=== PATIENT | male | born 1965 | race Caucasian/White ===

== ENCOUNTER 2018-06-29 22:58 | Inpatient (IN) | payer OTHER ==
[~2018-06-29] VITALS: Ht 180.3 cm; Wt 145.0 kg
[2018-06-29] MEDS ORDERED: iohexol 350MG/ML 100ml bottle IV ONE (23:20)
[2018-06-29 23:58] LABS: BASOPHILS # (AUTO) 0.1 X10'3 (0-0.2); BASOPHILS % (AUTO) 0.6 % (0-1); EOSINOPHILS # (AUTO) 0.6 X10'3 (0-0.9); EOSINOPHILS % (AUTO) 5.7 % (0-6); HEMATOCRIT 46.3 % (42.0-52.0); HEMOGLOBIN 15.6 g/dl (14.0-17.9); MEAN CORPUSCULAR HEMOGLOBIN 31.1 PG (27.0-31.0); MEAN CORPUSCULAR HGB CONC 33.6 % (33.0-36.5); MEAN CORPUSCULAR VOLUME 92.7 FL (78-98); MEAN PLATELET VOLUME 7.7 FL (7.4-10.4); MONOCYTES # (AUTO) 0.8 X10'3 (0-0.9); MONOCYTES % (AUTO) 7.3 % (2-12); NEUTROPHILS # (AUTO) 6.3 X10'3 (1.8-7.7); NEUTROPHILS % (AUTO) 58.4 % (42-75); PLATELET COUNT 374 X10'3 (140-440); RED CELL DISTRIBUTION WIDTH 13.7 % (11.5-14.5); WHITE BLOOD COUNT 10.7 X10'3 (4.5-11.0)
[2018-06-30] VITALS (7 sets, daily range): BP systolic 121–145; BP diastolic 83–93
[2018-06-30] MEDS ORDERED: acetaminophen 325mg tablet PO PRN ×2 (00:05)
[2018-06-30] MEDS ORDERED: HYDROcodone/acetaminophen 5mg/325mg tablet PO PRN (00:05)
[2018-06-30] MEDS ORDERED: mag hydrox/Alum hydrox/simeth 30ml oral suspension PO PRN (00:05)
[2018-06-30] MEDS ORDERED: morphine 2 MG/ML inj. syringe IV PRN (00:05)
[2018-06-30] MEDS ORDERED: HYDROcodone/acetaminophen 10/325mg tab PO PRN (00:05)
[2018-06-30] MEDS ORDERED: magnesium hydroxide 30ml (MOM) UD suspension PO PRN (00:05)
[2018-06-30] MEDS ORDERED: ondansetron/PF 4mg/2ml inj IV PRN (00:05)
[2018-06-30] MEDS ORDERED: heparin 10,000 units/1 ML INJ IV ONE (00:05)
[2018-06-30 00:13] LABS: ALANINE AMINOTRANSFERASE 42 U/L (12-78); ALBUMIN 3.8 G/DL (3.4-5.0); ALKALINE PHOSPHATASE 75 IU/L (46-116); ANION GAP 10 (8-16); ASPARTATE AMINO TRANSFERASE 33 U/L (10-37); BILIRUBIN,TOTAL 0.4 MG/DL (0.1-1.0); BLOOD UREA NITROGEN 14 MG/DL (7-18); BUN/CREATININE RATIO 12.1 (5.4-32.0); CALCIUM 9.1 MG/DL (8.5-10.1); CHLORIDE 104 MMOL/L (99-107); CREATININE 1.16 MG/DL (0.60-1.10); GLUCOSE 101 MG/DL (70-104); POTASSIUM 4.1 MMOL/L (3.5-5.1); SODIUM 138 MMOL/L (135-145); TOTAL CARBON DIOXIDE 23.6 MMOL/L (24-32); TOTAL PROTEIN 7.5 G/DL (6.4-8.2); eGFR 66 ML/MIN
[2018-06-30 00:20] LABS: PROTHROMBIN TIME 10.8 SECONDS (9.0-12.0)
[2018-06-30 00:21] LABS: INR 1.1 INR; PARTIAL THROMBOPLASTIN TIME 49 SECONDS (22-32)
[2018-06-30] MEDS: heparin 25,000 UNIT/250ml bag 250 ML IV SCH ×5 (00:45→17:31)
[2018-06-30] MEDS ORDERED: AMLO2.5T2 PO (01:01)
[2018-06-30] MEDS ORDERED: FENO160T13 PO (01:02)
[2018-06-30] MEDS ORDERED: CHOL200013 (01:05)
[2018-06-30] MEDS ORDERED: FLAX100010 (01:06)
[2018-06-30] MEDS: normal saline 1000ml 1,000 ML IV SCH ×3 (06:50→17:28)
[2018-06-30] MEDS: aspirin 81mg tablet.DR PO SCH (07:04)
[2018-06-30] MEDS: heparin 10,000 units/1 ML INJ IV PRN ×2 (07:08→13:44)
[2018-06-30] MEDS: atorvastatin 20mg tablet PO SCH (09:19)
[2018-06-30] MEDS: metoprolol tartrate 25mg tablet PO SCH ×2 (09:19→21:03)
[2018-06-30] MEDS ORDERED: temazepam 15mg capsule PO PRN (21:00)
[2018-07-01] VITALS (16 sets, daily range): BP systolic 114–142; BP diastolic 50–97
[2018-07-01 02:13] LABS: BASOPHILS # (AUTO) 0.1 X10'3 (0-0.2); BASOPHILS % (AUTO) 1.5 % (0-1); EOSINOPHILS # (AUTO) 0.6 X10'3 (0-0.9); EOSINOPHILS % (AUTO) 8.3 % (0-6); HEMATOCRIT 41.6 % (42.0-52.0); HEMOGLOBIN 14.3 g/dl (14.0-17.9); LYMPHOCYTES # (AUTO) 2.7 X10'3 (1.1-4.8); LYMPHOCYTES % (AUTO) 38.4 % (21-51); MEAN CORPUSCULAR HEMOGLOBIN 31.9 PG (27.0-31.0); MEAN CORPUSCULAR HGB CONC 34.3 % (33.0-36.5); MEAN CORPUSCULAR VOLUME 93.1 FL (78-98); MEAN PLATELET VOLUME 8.4 FL (7.4-10.4); MONOCYTES # (AUTO) 0.6 X10'3 (0-0.9); MONOCYTES % (AUTO) 9.3 % (2-12); NEUTROPHILS % (AUTO) 42.5 % (42-75); PLATELET COUNT 290 X10'3 (140-440); RED BLOOD COUNT 4.47 X10'6 (4.70-6.10); RED CELL DISTRIBUTION WIDTH 12.9 % (11.5-14.5)
[2018-07-01 02:22] LABS: ALBUMIN 3.4 G/DL (3.4-5.0); ANION GAP 10 (8-16); BLOOD UREA NITROGEN 14 MG/DL (7-18); BUN/CREATININE RATIO 12.8 (5.4-32.0); CALCIUM 8.5 MG/DL (8.5-10.1); CHLORIDE 106 MMOL/L (99-107); CHOL/HDL RATIO 4.2 (0.00-4.99); CHOLESTEROL 131 MG/DL (0-200); CREATININE 1.09 MG/DL (0.60-1.10); GLUCOSE 92 MG/DL (70-104); HDL CHOLESTEROL 31 MG/DL (35-60); LDL CHOLESTEROL 84 MG/DL (50-100); POTASSIUM 3.8 MMOL/L (3.5-5.1); SODIUM 140 MMOL/L (135-145); TOTAL CARBON DIOXIDE 24.5 MMOL/L (24-32); TRIGLYCERIDES 171 MG/DL (20-135); eGFR 71 ML/MIN
[2018-07-01] MEDS: normal saline 1000ml 1,000 ML IV SCH (06:02)
[2018-07-01] MEDS ORDERED: iohexol 350MG/ML 100ml bottle IV ONE (06:10)
[2018-07-01] MEDS ORDERED: LIDOcaine 1% (10mg/ml)w/preservative injection 20ml MDV ONE (06:10)
[2018-07-01] MEDS ORDERED: midazolam 2 mg/2 ml injection ONE (06:26)
[2018-07-01] MEDS ORDERED: fentaNYL/PF 50MCG/1 ML 2ML syringe ONE (06:26)
[2018-07-01] MEDS: atorvastatin 20mg tablet PO SCH (07:31)
[2018-07-01] MEDS: metoprolol tartrate 25mg tablet PO SCH ×2 (07:32→20:55)
[2018-07-01] MEDS: aspirin 81mg tablet.DR PO SCH (07:38)
[2018-07-01] MEDS ORDERED: dextrose 50%-water 50ml dispensing syringe IV PRN (08:25)
[2018-07-01] MEDS ORDERED: ondansetron/PF 4mg/2ml inj IV PRN ×2 (08:25→08:35)
[2018-07-01] MEDS ORDERED: MESSAGE TO NURSING PO ONE ×4 (08:25→10:00)
[2018-07-01] MEDS ORDERED: OXAZEpam 15mg capsule PO PRN ×2 (08:25→08:35)
[2018-07-01] MEDS ORDERED: proCHLORperazine 10 MG/2 ml inj IV PRN (08:35)
[2018-07-01] MEDS ORDERED: insulin Lispro (HumaLOG) vial - multi-dose SQ SCH (09:00)
[2018-07-01 09:09] LABS: INR 1.1 INR; PARTIAL THROMBOPLASTIN TIME 28 SECONDS (22-32); PROTHROMBIN TIME 10.8 SECONDS (9.0-12.0)
[2018-07-01] MEDS ORDERED: albuterol 2.5 MG/3 ML nebule NEB ONE (11:55)
[2018-07-01] MEDS ORDERED: albuterol 2.5 MG/3 ML nebule ONE (12:01)
[2018-07-01 14:50] LABS: ABG BASE EXCESS -1.2 mmol/L (-2.0-3.0); ABG HCO3 23.3 mmol/L (22.0-26.0); ABG OXYGEN SATURATION 95.7 % (95-98); ABG PCO2 (T) 38.6 mmHg (35.0-48.0); ABG PH (T) 7.399 (7.350-7.450); ABG PO2 (T) 74.8 mmHg (83-108); ALLEN'S TEST Positive; FCOHb 0.4 % (0.5-1.5); FMetHb 0.2 % (0.3-1.12); FO2Hb 95.1 % (94-100); TOTAL HEMOGLOBIN 15.9 G/dl (14.0-18.0)
[2018-07-01] MEDS: mupirocin 2% nasal ointment 1gm UD NS SCH (20:00)
[2018-07-02] MEDS ORDERED: MESSAGE TO NURSING PO ONE (01:30)
[2018-07-02 03:00] VITALS: BP 133/89
[2018-07-02 05:07] LABS: BASOPHILS % (AUTO) 0.4 % (0-1); EOSINOPHILS # (AUTO) 0.5 X10'3 (0-0.9); EOSINOPHILS % (AUTO) 6.8 % (0-6); HEMATOCRIT 41.8 % (42.0-52.0); HEMOGLOBIN 14.3 g/dl (14.0-17.9); LYMPHOCYTES # (AUTO) 2.2 X10'3 (1.1-4.8); LYMPHOCYTES % (AUTO) 27.7 % (21-51); MEAN CORPUSCULAR HEMOGLOBIN 31.8 PG (27.0-31.0); MEAN CORPUSCULAR HGB CONC 34.2 % (33.0-36.5); MEAN CORPUSCULAR VOLUME 92.8 FL (78-98); MEAN PLATELET VOLUME 7.9 FL (7.4-10.4); MONOCYTES # (AUTO) 0.6 X10'3 (0-0.9); MONOCYTES % (AUTO) 8.2 % (2-12); NEUTROPHILS # (AUTO) 4.4 X10'3 (1.8-7.7); NEUTROPHILS % (AUTO) 56.9 % (42-75); PLATELET COUNT 276 X10'3 (140-440); RED BLOOD COUNT 4.51 X10'6 (4.70-6.10); RED CELL DISTRIBUTION WIDTH 13.5 % (11.5-14.5); WHITE BLOOD COUNT 7.8 X10'3 (4.5-11.0)
[2018-07-02 05:14] LABS: ALBUMIN 3.4 G/DL (3.4-5.0); ANION GAP 10 (8-16); BLOOD UREA NITROGEN 12 MG/DL (7-18); BUN/CREATININE RATIO 10.9 (5.4-32.0); CALCIUM 8.5 MG/DL (8.5-10.1); CHLORIDE 107 MMOL/L (99-107); GLUCOSE 87 MG/DL (70-104); POTASSIUM 3.7 MMOL/L (3.5-5.1); SODIUM 140 MMOL/L (135-145); TOTAL CARBON DIOXIDE 23.5 MMOL/L (24-32); eGFR 70 ML/MIN
[2018-07-02] MEDS ORDERED: ceFAZolin inj. 3,000 MG in normal saline 100ml IV soln 100 ML IV ONE (05:30)
[2018-07-02] MEDS ORDERED: insulin regular, human inj. 100 UNITS in normal saline 100ml IV soln 100 ML IV SCH ×2 (05:30)
[2018-07-02 06:00] VITALS: BP 130/87
[2018-07-02] MEDS: mupirocin 2% nasal ointment 1gm UD NS SCH ×2 (08:00→20:00)
[2018-07-02] MEDS: atorvastatin 20mg tablet PO SCH (08:36)
[2018-07-02] MEDS: aspirin 81mg tablet.DR PO SCH (08:36)
[2018-07-02] MEDS: metoprolol tartrate 25mg tablet PO SCH ×2 (08:37→20:38)
[2018-07-02 11:00] VITALS: BP 144/87
[2018-07-02 15:00] VITALS: BP 135/89
[2018-07-02 19:00] VITALS: BP 125/81
[2018-07-02 23:00] VITALS: BP 104/68
[2018-07-03 03:00] VITALS: BP 112/74
[2018-07-03 05:58] LABS: BASOPHILS % (AUTO) 0.5 % (0-1); EOSINOPHILS # (AUTO) 0.5 X10'3 (0-0.9); EOSINOPHILS % (AUTO) 6.5 % (0-6); HEMATOCRIT 42.2 % (42.0-52.0); HEMOGLOBIN 14.4 g/dl (14.0-17.9); LYMPHOCYTES # (AUTO) 2.2 X10'3 (1.1-4.8); LYMPHOCYTES % (AUTO) 26.3 % (21-51); MEAN CORPUSCULAR HEMOGLOBIN 31.8 PG (27.0-31.0); MEAN CORPUSCULAR HGB CONC 34.2 % (33.0-36.5); MEAN CORPUSCULAR VOLUME 92.9 FL (78-98); MEAN PLATELET VOLUME 8.1 FL (7.4-10.4); MONOCYTES # (AUTO) 0.7 X10'3 (0-0.9); MONOCYTES % (AUTO) 8.5 % (2-12); NEUTROPHILS # (AUTO) 4.8 X10'3 (1.8-7.7); NEUTROPHILS % (AUTO) 58.2 % (42-75); PLATELET COUNT 290 X10'3 (140-440); RED BLOOD COUNT 4.54 X10'6 (4.70-6.10); RED CELL DISTRIBUTION WIDTH 13.1 % (11.5-14.5); WHITE BLOOD COUNT 8.3 X10'3 (4.5-11.0)
[2018-07-03 06:00] VITALS: BP 134/84
[2018-07-03 06:11] LABS: ALBUMIN 3.8 G/DL (3.4-5.0); ANION GAP 10 (8-16); BLOOD UREA NITROGEN 17 MG/DL (7-18); BUN/CREATININE RATIO 13.4 (5.4-32.0); CALCIUM 8.6 MG/DL (8.5-10.1); CHLORIDE 106 MMOL/L (99-107); CREATININE 1.27 MG/DL (0.60-1.10); GLUCOSE 89 MG/DL (70-104); POTASSIUM 3.9 MMOL/L (3.5-5.1); SODIUM 141 MMOL/L (135-145); TOTAL CARBON DIOXIDE 25.2 MMOL/L (24-32); eGFR 60 ML/MIN
[2018-07-03] MEDS: aspirin 81mg tablet.DR PO SCH (07:28)
[2018-07-03] MEDS: metoprolol tartrate 25mg tablet PO SCH ×2 (07:28→20:47)
[2018-07-03] MEDS: atorvastatin 20mg tablet PO SCH (07:28)
[2018-07-03] MEDS: mupirocin 2% nasal ointment 1gm UD NS SCH (08:00)
[2018-07-03] MEDS ORDERED: heparin 1,000 units/ml 10ml inj ONE (09:00)
[2018-07-03] MEDS ORDERED: sodium bicarbonate (8.4%) 1 mEq/ml syringe ONE (09:00)
[2018-07-03] MEDS ORDERED: methylPREDNISolone sod succ 1000mg vial ONE (09:00)
[2018-07-03] MEDS ORDERED: albumin (human) 25% 100 ML IV solution IV ONE (09:00)
[2018-07-03] MEDS ORDERED: magnesium sulf 1 GM/2 ML ONE (09:00)
[2018-07-03] MEDS ORDERED: LIDOcaine 2% (20 mg/ml) 5ml cardiac syringe ONE (09:00)
[2018-07-03] MEDS ORDERED: calcium chloride 100 MG/1 ML inj IV ONE (09:00)
[2018-07-03] MEDS ORDERED: aminocaproic acid 250 MG/1 ML inj. ONE (09:00)
[2018-07-03] MEDS ORDERED: papaverine 30 mg/ml 2ml inj. ONE (09:00)
[2018-07-03] MEDS ORDERED: phenylephrine 10mg/ml inj. ONE (09:00)
[2018-07-03] MEDS ORDERED: potassium Cl 2 mEq/ml inj IV ONE (09:00)
[2018-07-03] MEDS ORDERED: heparin 10,000 units/1 ML INJ ONE ×2 (09:00)
[2018-07-03] MEDS ORDERED: ringers solution, lacted 1,000 ML IV ONE (09:35)
[2018-07-03 11:00] VITALS: BP 131/90
[2018-07-03 15:00] VITALS: BP 121/83
[2018-07-03 19:00] VITALS: BP 136/87
[2018-07-03 23:00] VITALS: BP 118/82
[2018-07-04] VITALS (19 sets, daily range): BP systolic 98–154; BP diastolic 52–99
[2018-07-04] MEDS ORDERED: mupirocin 2% nasal ointment 1gm UD NS SCH (04:30)
[2018-07-04] MEDS: insulin regular, human inj. 100 UNITS in normal saline 100ml IV soln 100 ML IV SCH ×2 (05:30)
[2018-07-04] MEDS ORDERED: ceFAZolin inj. 3,000 MG in normal saline 100ml IV soln 100 ML IV ONE (05:30)
[2018-07-04] MEDS ORDERED: LORazepam 2 mg/ml vial IV ONE (06:00)
[2018-07-04] MEDS ORDERED: famotidine 20mg tablet PO ONE (06:00)
[2018-07-04] MEDS ORDERED: phenylephrine 10mg/ml inj. ONE ×2 (06:40→09:00)
[2018-07-04] MEDS ORDERED: aminocaproic acid 250 MG/1 ML inj. ONE ×2 (06:40→09:00)
[2018-07-04] MEDS ORDERED: sevoflurane 250ml liquid IH ONE (06:40)
[2018-07-04] MEDS ORDERED: nitroGLYCERIN in D5W 50mg/250ml (Tridil) infusion IV ONE (06:40)
[2018-07-04] MEDS ORDERED: protamine sulf. 10mg/ml inj. IV ONE (06:40)
[2018-07-04] MEDS ORDERED: SUFENTANIL CITRATE 50 MCG/ML 2ml ampule IV ONE (06:45)
[2018-07-04] MEDS ORDERED: MIDAZolam 1mg/ml 10ml vial ONE (06:45)
[2018-07-04] MEDS ORDERED: LIDOcaine 2% (20mg/ml) 5ml vial ONE (06:46)
[2018-07-04] MEDS ORDERED: propofol inj 20 ML IV ONE ×2 (06:46)
[2018-07-04] MEDS ORDERED: pancuronium br 1mg/ml inj IV ONE (06:47)
[2018-07-04] MEDS ORDERED: succinylcholine 20mg/ml inj IV ONE (06:47)
[2018-07-04 06:51] LABS: BASOPHILS % (AUTO) 0.4 % (0-1); EOSINOPHILS # (AUTO) 0.7 X10'3 (0-0.9); EOSINOPHILS % (AUTO) 7.7 % (0-6); HEMATOCRIT 43.9 % (42.0-52.0); LYMPHOCYTES # (AUTO) 2.3 X10'3 (1.1-4.8); LYMPHOCYTES % (AUTO) 26.1 % (21-51); MEAN CORPUSCULAR HEMOGLOBIN 31.9 PG (27.0-31.0); MEAN CORPUSCULAR HGB CONC 34.1 % (33.0-36.5); MEAN CORPUSCULAR VOLUME 93.4 FL (78-98); MEAN PLATELET VOLUME 8.4 FL (7.4-10.4); MONOCYTES # (AUTO) 0.7 X10'3 (0-0.9); MONOCYTES % (AUTO) 8.5 % (2-12); NEUTROPHILS % (AUTO) 57.3 % (42-75); PLATELET COUNT 293 X10'3 (140-440); RED CELL DISTRIBUTION WIDTH 13.6 % (11.5-14.5); WHITE BLOOD COUNT 8.6 X10'3 (4.5-11.0)
[2018-07-04 07:00] LABS: ALBUMIN 3.7 G/DL (3.4-5.0); ANION GAP 10 (8-16); BLOOD UREA NITROGEN 17 MG/DL (7-18); BUN/CREATININE RATIO 13.7 (5.4-32.0); CHLORIDE 105 MMOL/L (99-107); CREATININE 1.24 MG/DL (0.60-1.10); GLUCOSE 81 MG/DL (70-104); POTASSIUM 3.9 MMOL/L (3.5-5.1); SODIUM 141 MMOL/L (135-145); TOTAL CARBON DIOXIDE 25.7 MMOL/L (24-32); eGFR 61 ML/MIN
[2018-07-04 07:05] LABS: INR 1.1 INR; PROTHROMBIN TIME 10.9 SECONDS (9.0-12.0)
[2018-07-04 07:40] LABS: ABG BASE EXCESS -1.9 mmol/L (-2.0-3.0); ABG HCO3 22.1 mmol/L (22.0-26.0); ABG OXYGEN SATURATION 99.5 % (95-98); ABG PCO2 35.7 mmHg (35.0-45.0); ABG PO2 353.5 mmHg (60.0-100.0); CL (ABG) 107 mmol/L (99-107); FCOHb 0.6 % (0.5-1.5); FMetHb 0.2 % (0.3-1.12); FO2Hb 98.7 % (94-100); GLUCOSE (ABG) 93 mg/dl (70-105); IONIZED CA (ABG) 1.16 mmol/L (1.03-1.32); K (ABG) 4.4 mmol/L (3.3-5.1); NA (ABG) 137 mmol/L (135-145); TOTAL HEMOGLOBIN 14.7 G/dl (14.0-18.0)
[2018-07-04] MEDS: atorvastatin 20mg tablet PO SCH (08:00)
[2018-07-04] MEDS: metoprolol tartrate 25mg tablet PO SCH (08:00)
[2018-07-04] MEDS: aspirin 81mg tablet.DR PO SCH (08:00)
[2018-07-04] MEDS ORDERED: papaverine 30 mg/ml 2ml inj. IA ONE (08:37)
[2018-07-04] MEDS ORDERED: heparin 10,000 units/1 ML INJ IR ONE (08:38)
[2018-07-04] MEDS ORDERED: potassium Cl 2 mEq/ml inj IV ONE (09:00)
[2018-07-04] MEDS ORDERED: heparin 1,000 units/ml 10ml inj ONE (09:00)
[2018-07-04] MEDS ORDERED: LIDOcaine 2% (20 mg/ml) 5ml cardiac syringe ONE (09:00)
[2018-07-04] MEDS ORDERED: methylPREDNISolone sod succ 1000mg vial ONE (09:00)
[2018-07-04] MEDS ORDERED: magnesium sulf 1 GM/2 ML ONE (09:00)
[2018-07-04] MEDS ORDERED: calcium chloride 100 MG/1 ML inj IV ONE (09:00)
[2018-07-04] MEDS ORDERED: sodium bicarbonate (8.4%) 1 mEq/ml syringe ONE (09:00)
[2018-07-04] MEDS ORDERED: heparin 10,000 units/1 ML INJ ONE (09:00)
[2018-07-04] MEDS ORDERED: albumin (human) 25% 100 ML IV solution IV ONE (09:00)
[2018-07-04] MEDS ORDERED: rocuronium 10mg/ml inj IV ONE ×2 (09:01)
[2018-07-04 09:31] LABS: ABG BASE EXCESS -3.2 mmol/L (-2.0-3.0); ABG HCO3 21.7 mmol/L (22.0-26.0); ABG OXYGEN SATURATION 99.4 % (95-98); ABG PCO2 38.7 mmHg (35.0-45.0); ABG PH 7.367 (7.350-7.450); ABG PO2 516.4 mmHg (60.0-100.0); CL (ABG) 107 mmol/L (99-107); FCOHb 0.3 % (0.5-1.5); FMetHb 0.3 % (0.3-1.12); FO2Hb 98.8 % (94-100); GLUCOSE (ABG) 93 mg/dl (70-105); IONIZED CA (ABG) 1.06 mmol/L (1.03-1.32); K (ABG) 5.2 mmol/L (3.3-5.1); NA (ABG) 134 mmol/L (135-145)
[2018-07-04 09:56] LABS: ABG BASE EXCESS VENOUS -0.5 mmol/L; ABG HCO3 VENOUS 24.9 mmol/L; ABG PCO2 VENOUS 44.2 mmHg; ABG PO2 VENOUS 48.2 mmHg; CL (ABG) 106 mmol/L (99-107); FCOHb VENOUS 0.4 %; FHHb VENOUS 14.9 %; FMetHb VENOUS 0.3 %; FO2Hb VENOUS 84.4 %; GLUCOSE (ABG) 112 mg/dl (70-105); IONIZED CA (ABG) 1.06 mmol/L (1.03-1.32); K (ABG) 5.2 mmol/L (3.3-5.1); NA (ABG) 136 mmol/L (135-145); TOTAL HEMOGLOBIN 11.7 G/dl (14.0-18.0)
[2018-07-04 10:20] LABS: ABG BASE EXCESS -1.8 mmol/L (-2.0-3.0); ABG HCO3 23.2 mmol/L (22.0-26.0); ABG OXYGEN SATURATION 99.3 % (95-98); ABG PCO2 40.1 mmHg (35.0-45.0); ABG PO2 390.8 mmHg (60.0-100.0); CL (ABG) 107 mmol/L (99-107); FCOHb 0.3 % (0.5-1.5); FMetHb 0.3 % (0.3-1.12); FO2Hb 98.7 % (94-100); GLUCOSE (ABG) 134 mg/dl (70-105); IONIZED CA (ABG) 1.05 mmol/L (1.03-1.32); K (ABG) 5.2 mmol/L (3.3-5.1); NA (ABG) 136 mmol/L (135-145); TOTAL HEMOGLOBIN 11.5 G/dl (14.0-18.0)
[2018-07-04 10:40] LABS: ABG HCO3 23.9 mmol/L (22.0-26.0); ABG OXYGEN SATURATION 99.1 % (95-98); ABG PCO2 40.4 mmHg (35.0-45.0); ABG PH 7.389 (7.350-7.450); ABG PO2 467.9 mmHg (60.0-100.0); CL (ABG) 106 mmol/L (99-107); FCOHb 0.3 % (0.5-1.5); FMetHb 0.4 % (0.3-1.12); FO2Hb 98.4 % (94-100); GLUCOSE (ABG) 134 mg/dl (70-105); IONIZED CA (ABG) 1.15 mmol/L (1.03-1.32); K (ABG) 5.3 mmol/L (3.3-5.1); NA (ABG) 134 mmol/L (135-145); TOTAL HEMOGLOBIN 10.9 G/dl (14.0-18.0)
[2018-07-04 11:16] LABS: ABG BASE EXCESS VENOUS -2.3 mmol/L; ABG HCO3 VENOUS 23.7 mmol/L; ABG PCO2 VENOUS 45.4 mmHg; ABG PO2 VENOUS 44.5 mmHg; CL (ABG) 106 mmol/L (99-107); FCOHb VENOUS 0.6 %; FHHb VENOUS 19.6 %; FMetHb VENOUS 0.3 %; FO2Hb VENOUS 79.5 %; GLUCOSE (ABG) 135 mg/dl (70-105); K (ABG) 4.5 mmol/L (3.3-5.1); NA (ABG) 135 mmol/L (135-145); TOTAL HEMOGLOBIN 11.7 G/dl (14.0-18.0)
[2018-07-04] MEDS ORDERED: nitroGLYCERIN-Tridil 50MG/D5W 250 ML IV PRN (11:39)
[2018-07-04] MEDS ORDERED: niCARDipine-NS 40mg/200ml IVPB 200 ML IV PRN (11:39)
[2018-07-04] MEDS ORDERED: DOPamine 400mg/D5W 250ml 250 ML IV PRN (11:39)
[2018-07-04] MEDS ORDERED: dextrose 50%-water 50ml dispensing syringe IV PRN (11:40)
[2018-07-04] MEDS ORDERED: ondansetron/PF 4mg/2ml inj IV PRN (11:40)
[2018-07-04] MEDS ORDERED: magnesium hydroxide 30ml (MOM) UD suspension PO PRN (11:40)
[2018-07-04] MEDS ORDERED: potassium Cl 20mEq/100mL bag 100 ML IV PRN ×2 (11:40)
[2018-07-04] MEDS ORDERED: acetaminophen 325mg tablet PO PRN (11:40)
[2018-07-04] MEDS ORDERED: Neutra Phos packet PO PRN (11:40)
[2018-07-04] MEDS ORDERED: sodium phosphate inj. 30 MMOL in dextrose 5%-water 250 ML IV PRN (11:40)
[2018-07-04] MEDS ORDERED: insulin regular, human inj. 100 UNITS in normal saline 100ml IV soln 100 ML IV SCH ×2 (11:40)
[2018-07-04] MEDS ORDERED: HYDROcodone/acetaminophen 10/325mg tab PO PRN (11:40)
[2018-07-04] MEDS ORDERED: magnesium 1gm/100ml D5W IVPB 100 ML IV PRN (11:40)
[2018-07-04] MEDS ORDERED: pantoprazole 40 MG vial IV ONE (11:40)
[2018-07-04] MEDS ORDERED: sodium phosphate inj. 15 MMOL in dextrose 5%-water 150 ML IV PRN (11:40)
[2018-07-04] MEDS ORDERED: metoclopramide 5 mg/ml inj IV PRN (11:40)
[2018-07-04] MEDS ORDERED: normal saline 250ml IV soln 250 ML IV PRN (11:40)
[2018-07-04] MEDS ORDERED: magnesium 4gm in 100ml NS 100 ML IV PRN (11:40)
[2018-07-04] MEDS: insulin Lispro (HumaLOG) vial - multi-dose SQ SCH ×2 (11:48→16:13)
[2018-07-04 12:25] LABS: BASOPHILS % (AUTO) 0 % (0-1); EOSINOPHILS # (AUTO) 0.2 X10'3 (0-0.9); HEMATOCRIT 37.6 % (42.0-52.0); HEMOGLOBIN 12.6 g/dl (14.0-17.9); LYMPHOCYTES % (AUTO) 8.9 % (21-51); MEAN CORPUSCULAR HEMOGLOBIN 31.1 PG (27.0-31.0); MEAN CORPUSCULAR HGB CONC 33.4 % (33.0-36.5); MEAN CORPUSCULAR VOLUME 93.3 FL (78-98); MEAN PLATELET VOLUME 7.6 FL (7.4-10.4); MONOCYTES # (AUTO) 0.5 X10'3 (0-0.9); MONOCYTES % (AUTO) 4.3 % (2-12); NEUTROPHILS # (AUTO) 9.6 X10'3 (1.8-7.7); NEUTROPHILS % (AUTO) 84.8 % (42-75); PLATELET COUNT 217 X10'3 (140-440); RED BLOOD COUNT 4.03 X10'6 (4.70-6.10); RED CELL DISTRIBUTION WIDTH 13.3 % (11.5-14.5); WHITE BLOOD COUNT 11.4 X10'3 (4.5-11.0)
[2018-07-04 12:30] LABS: ABG BASE EXCESS -3.3 mmol/L (-2.0-3.0); ABG HCO3 21.9 mmol/L (22.0-26.0); ABG OXYGEN SATURATION 95.6 % (95-98); ABG PCO2 (T) 38.4 mmHg (35.0-48.0); ABG PH (T) 7.369 (7.350-7.450); ABG PO2 (T) 74.9 mmHg (83-108); FCOHb 0.3 % (0.5-1.5); FMetHb 0.2 % (0.3-1.12); FO2Hb 95.1 % (94-100); MINUTE VOLUME 10 L/min; PEEP 5 cm H2O; RESPIRATORY RATE 14 b/min; RESPIRATORY RATE (OBSERVED) 14 b/min; TIDAL VOLUME 700 mL; TOTAL HEMOGLOBIN 13.4 G/dl (14.0-18.0)
[2018-07-04 12:40] LABS: ALANINE AMINOTRANSFERASE 36 U/L (12-78); ALBUMIN/GLOBULIN RATIO 1.3 (1.1-1.5); ALKALINE PHOSPHATASE 46 IU/L (46-116); ANION GAP 9 (8-16); ASPARTATE AMINO TRANSFERASE 50 U/L (10-37); BILIRUBIN,TOTAL 0.7 MG/DL (0.1-1.0); BLOOD UREA NITROGEN 16 MG/DL (7-18); CALCIUM 8.1 MG/DL (8.5-10.1); CHLORIDE 108 MMOL/L (99-107); CREATININE 1.33 MG/DL (0.60-1.10); GLUCOSE 124 MG/DL (70-104); INR 1.2 INR; MAGNESIUM 2.9 MG/DL (1.5-2.4); PARTIAL THROMBOPLASTIN TIME 32 SECONDS (22-32); PHOSPHORUS 3.4 MG/DL (2.3-4.5); POTASSIUM 4.3 MMOL/L (3.5-5.1); SODIUM 142 MMOL/L (135-145); TOTAL CARBON DIOXIDE 25.3 MMOL/L (24-32); TOTAL PROTEIN 5.3 G/DL (6.4-8.2); eGFR 56 ML/MIN
[2018-07-04] MEDS: sodium chloride 0.45% 1,000 ML IV SCH (12:56)
[2018-07-04] MEDS: potassium Cl 20mEq/100mL bag 100 ML IV PRN ×2 (13:20→23:08)
[2018-07-04] MEDS: morphine 4 MG/ML inj SYRINge IV PRN ×4 (13:27→23:21)
[2018-07-04] MEDS: Cefazolin 2GM/100ML NS IVPB 100 ML IV SCH (16:13)
[2018-07-04] MEDS: albumin (Human) 5% 250ml 250 ML IV PRN ×2 (16:58→17:41)
[2018-07-04 18:10] LABS: BASOPHILS % (AUTO) 0 % (0-1); EOSINOPHILS # (AUTO) 0.1 X10'3 (0-0.9); EOSINOPHILS % (AUTO) 1.2 % (0-6); HEMATOCRIT 37.3 % (42.0-52.0); HEMOGLOBIN 12.6 g/dl (14.0-17.9); LYMPHOCYTES # (AUTO) 0.5 X10'3 (1.1-4.8); LYMPHOCYTES % (AUTO) 4.4 % (21-51); MEAN CORPUSCULAR HEMOGLOBIN 31.6 PG (27.0-31.0); MEAN CORPUSCULAR HGB CONC 33.7 % (33.0-36.5); MEAN CORPUSCULAR VOLUME 93.7 FL (78-98); MEAN PLATELET VOLUME 7.9 FL (7.4-10.4); MONOCYTES # (AUTO) 0.3 X10'3 (0-0.9); MONOCYTES % (AUTO) 2.4 % (2-12); NEUTROPHILS # (AUTO) 10.9 X10'3 (1.8-7.7); PLATELET COUNT 232 X10'3 (140-440); RED BLOOD COUNT 3.98 X10'6 (4.70-6.10); RED CELL DISTRIBUTION WIDTH 13.1 % (11.5-14.5); WHITE BLOOD COUNT 11.9 X10'3 (4.5-11.0)
[2018-07-04 18:25] LABS: ALBUMIN 3.6 G/DL (3.4-5.0); ANION GAP 12 (8-16); BLOOD UREA NITROGEN 18 MG/DL (7-18); BUN/CREATININE RATIO 12.5 (5.4-32.0); CHLORIDE 108 MMOL/L (99-107); CREATININE 1.44 MG/DL (0.60-1.10); GLUCOSE 182 MG/DL (70-104); MAGNESIUM 2.5 MG/DL (1.5-2.4); PHOSPHORUS 3.8 MG/DL (2.3-4.5); POTASSIUM 4.3 MMOL/L (3.5-5.1); SODIUM 142 MMOL/L (135-145); TOTAL CARBON DIOXIDE 22.4 MMOL/L (24-32); eGFR 52 ML/MIN
[2018-07-04] MEDS: docusate sod 100mg capsule PO SCH (20:00)
[2018-07-04] MEDS: mupirocin 2% nasal ointment 1gm UD NS SCH (20:30)
[2018-07-04] MEDS: vancomycin/NS 1 GM ADD-VANTAGE 250 ML IV SCH (20:31)
[2018-07-04 21:00] LABS: ABG BASE EXCESS -5.1 mmol/L (-2.0-3.0); ABG HCO3 19.4 mmol/L (22.0-26.0); ABG OXYGEN SATURATION 92.6 % (95-98); ABG PCO2 (T) 34.7 mmHg (35.0-48.0); ABG PH (T) 7.367 (7.350-7.450); ABG PO2 (T) 65.3 mmHg (83-108); FCOHb 0.2 % (0.5-1.5); FMetHb 0.2 % (0.3-1.12); FO2Hb 92.2 % (94-100); MINUTE VOLUME 11 L/min; PATIENT TEMPERATURE 37.3; PEEP 5 cm H2O; RESPIRATORY RATE (OBSERVED) 17 b/min; TOTAL HEMOGLOBIN 13.2 G/dl (14.0-18.0)
[2018-07-05] VITALS (23 sets, daily range): BP systolic 102–164; BP diastolic 51–84
[2018-07-05] MEDS: Cefazolin 2GM/100ML NS IVPB 100 ML IV SCH ×3 (00:29→17:13)
[2018-07-05 03:03] LABS: BASOPHILS % (AUTO) 0.1 % (0-1); EOSINOPHILS % (AUTO) 0 % (0-6); LYMPHOCYTES # (AUTO) 0.8 X10'3 (1.1-4.8); LYMPHOCYTES % (AUTO) 5.6 % (21-51); MEAN CORPUSCULAR HEMOGLOBIN 31.5 PG (27.0-31.0); MEAN CORPUSCULAR HGB CONC 33.5 % (33.0-36.5); MEAN CORPUSCULAR VOLUME 94.3 FL (78-98); MEAN PLATELET VOLUME 8.8 FL (7.4-10.4); MONOCYTES # (AUTO) 0.5 X10'3 (0-0.9); MONOCYTES % (AUTO) 3.8 % (2-12); NEUTROPHILS # (AUTO) 12.4 X10'3 (1.8-7.7); NEUTROPHILS % (AUTO) 90.5 % (42-75); PLATELET COUNT 231 X10'3 (140-440); RED BLOOD COUNT 3.81 X10'6 (4.70-6.10); RED CELL DISTRIBUTION WIDTH 13.8 % (11.5-14.5); WHITE BLOOD COUNT 13.7 X10'3 (4.5-11.0)
[2018-07-05 03:11] LABS: ALANINE AMINOTRANSFERASE 41 U/L (12-78); ALBUMIN 3.4 G/DL (3.4-5.0); ALBUMIN/GLOBULIN RATIO 1.3 (1.1-1.5); ALKALINE PHOSPHATASE 51 IU/L (46-116); ANION GAP 10 (8-16); ASPARTATE AMINO TRANSFERASE 90 U/L (10-37); BILIRUBIN,TOTAL 0.3 MG/DL (0.1-1.0); BLOOD UREA NITROGEN 18 MG/DL (7-18); BUN/CREATININE RATIO 13.2 (5.4-32.0); CALCIUM 8.3 MG/DL (8.5-10.1); CHLORIDE 108 MMOL/L (99-107); CREATININE 1.36 MG/DL (0.60-1.10); GLUCOSE 130 MG/DL (70-104); MAGNESIUM 2.5 MG/DL (1.5-2.4); POTASSIUM 4.7 MMOL/L (3.5-5.1); SODIUM 142 MMOL/L (135-145); TOTAL CARBON DIOXIDE 23.8 MMOL/L (24-32); TOTAL PROTEIN 6.1 G/DL (6.4-8.2); eGFR 55 ML/MIN
[2018-07-05] MEDS: insulin regular, human inj. 100 UNITS in normal saline 100ml IV soln 100 ML IV SCH ×2 (03:13)
[2018-07-05 03:15] LABS: INR 1.1 INR; PARTIAL THROMBOPLASTIN TIME 28 SECONDS (22-32); PROTHROMBIN TIME 11.1 SECONDS (9.0-12.0)
[2018-07-05] MEDS: morphine 4 MG/ML inj SYRINge IV PRN ×4 (04:34→20:56)
[2018-07-05] MEDS: mupirocin 2% nasal ointment 1gm UD NS SCH ×2 (08:21→20:55)
[2018-07-05] MEDS: insulin Lispro (HumaLOG) vial - multi-dose SQ SCH (08:21)
[2018-07-05] MEDS: aspirin 325mg tablet, delayed-release (Ecotrin) PO SCH (08:22)
[2018-07-05] MEDS: metoprolol tartrate 12.5mg (1/2 tablet) PO SCH ×3 (08:22→22:19)
[2018-07-05] MEDS: docusate sod 100mg capsule PO SCH ×2 (08:22→20:55)
[2018-07-05] MEDS: atorvastatin 10mg tablet PO SCH (08:23)
[2018-07-05] MEDS: vancomycin/NS 1 GM ADD-VANTAGE 250 ML IV SCH ×2 (09:31→20:54)
[2018-07-05] MEDS: pantoprazole 40mg Tablet.DR PO SCH (09:31)
[2018-07-05] MEDS ORDERED: glucagon, human recombinant 1mg kit SUBCUT PRN (09:50)
[2018-07-05] MEDS ORDERED: insulin Lispro (HumaLOG) vial - multi-dose SQ SCH (09:50)
[2018-07-05] MEDS ORDERED: dextrose 50%-water 50ml dispensing syringe IV PRN ×2 (09:50)
[2018-07-05] MEDS ORDERED: MESSAGE TO PHARMACY PO ONE (09:50)
[2018-07-05] MEDS ORDERED: dextrose ORAL solution 15 GM/59 ML bottle PO PRN ×2 (09:50)
[2018-07-05] MEDS ORDERED: mag hydrox/Alum hydrox/simeth 30ml oral suspension PO PRN (10:45)
[2018-07-05] MEDS: insulin glargine (Lantus) pen - multi-dose SQ SCH (21:00)
[2018-07-06] VITALS (24 sets, daily range): BP systolic 110–171; BP diastolic 56–99
[2018-07-06] MEDS: Cefazolin 2GM/100ML NS IVPB 100 ML IV SCH (00:22)
[2018-07-06 03:01] LABS: BASOPHILS % (AUTO) 0.1 % (0-1); EOSINOPHILS % (AUTO) 0 % (0-6); HEMATOCRIT 32.1 % (42.0-52.0); HEMOGLOBIN 10.9 g/dl (14.0-17.9); LYMPHOCYTES % (AUTO) 7.9 % (21-51); MEAN CORPUSCULAR VOLUME 94.2 FL (78-98); MEAN PLATELET VOLUME 8.1 FL (7.4-10.4); MONOCYTES % (AUTO) 8.1 % (2-12); NEUTROPHILS # (AUTO) 10.9 X10'3 (1.8-7.7); NEUTROPHILS % (AUTO) 83.9 % (42-75); PLATELET COUNT 232 X10'3 (140-440); RED CELL DISTRIBUTION WIDTH 13.8 % (11.5-14.5)
[2018-07-06 03:17] LABS: ALBUMIN 3.2 G/DL (3.4-5.0); ANION GAP 9 (8-16); BLOOD UREA NITROGEN 25 MG/DL (7-18); BUN/CREATININE RATIO 21.2 (5.4-32.0); CHLORIDE 105 MMOL/L (99-107); CREATININE 1.18 MG/DL (0.60-1.10); GLUCOSE 145 MG/DL (70-104); MAGNESIUM 2.3 MG/DL (1.5-2.4); POTASSIUM 4.8 MMOL/L (3.5-5.1); SODIUM 138 MMOL/L (135-145); TOTAL CARBON DIOXIDE 24.3 MMOL/L (24-32); eGFR 65 ML/MIN
[2018-07-06] MEDS ORDERED: magnesium 2GM in 50ml NS 50 ML IV ONE (04:25)
[2018-07-06] MEDS: sodium chloride 0.45% 1,000 ML IV SCH (04:40)
[2018-07-06] MEDS: morphine 4 MG/ML inj SYRINge IV PRN (04:53)
[2018-07-06] MEDS ORDERED: furosemide 40mg/4ml inj IV ONE (07:05)
[2018-07-06 07:06] LABS: ACTIVATED CLOTTING TIME 136 SEC (101-148)
[2018-07-06 07:06] LABS: ACT @ 1.70 U 307 SEC (193-297); ACT @ 2.84 U 448 SEC (260-420); BASELINE ACT 160 SEC (101-148)
[2018-07-06] MEDS: mupirocin 2% nasal ointment 1gm UD NS SCH (07:16)
[2018-07-06] MEDS: aspirin 325mg tablet, delayed-release (Ecotrin) PO SCH (07:17)
[2018-07-06] MEDS: atorvastatin 10mg tablet PO SCH (07:17)
[2018-07-06] MEDS: metoprolol tartrate 12.5mg (1/2 tablet) PO SCH ×2 (07:17→20:12)
[2018-07-06] MEDS: pantoprazole 40mg Tablet.DR PO SCH (07:17)
[2018-07-06] MEDS: docusate sod 100mg capsule PO SCH ×2 (07:17→20:13)
[2018-07-06] MEDS: HYDROcodone/acetaminophen 10/325mg tab PO PRN (14:16)
[2018-07-06] MEDS: insulin glargine (Lantus) pen - multi-dose SQ SCH (21:00)
[2018-07-07] VITALS (23 sets, daily range): BP systolic 99–143; BP diastolic 56–92
[2018-07-07] MEDS: HYDROcodone/acetaminophen 10/325mg tab PO PRN (05:13)
[2018-07-07 05:45] LABS: BASOPHILS % (AUTO) 0.2 % (0-1); EOSINOPHILS # (AUTO) 0.2 X10'3 (0-0.9); EOSINOPHILS % (AUTO) 2.1 % (0-6); HEMATOCRIT 31.2 % (42.0-52.0); HEMOGLOBIN 10.5 g/dl (14.0-17.9); LYMPHOCYTES # (AUTO) 1.7 X10'3 (1.1-4.8); LYMPHOCYTES % (AUTO) 15.1 % (21-51); MEAN CORPUSCULAR HEMOGLOBIN 31.5 PG (27.0-31.0); MEAN CORPUSCULAR HGB CONC 33.7 % (33.0-36.5); MEAN CORPUSCULAR VOLUME 93.5 FL (78-98); MEAN PLATELET VOLUME 8.2 FL (7.4-10.4); MONOCYTES # (AUTO) 0.9 X10'3 (0-0.9); MONOCYTES % (AUTO) 8.4 % (2-12); NEUTROPHILS # (AUTO) 8.3 X10'3 (1.8-7.7); NEUTROPHILS % (AUTO) 74.2 % (42-75); PLATELET COUNT 242 X10'3 (140-440); RED BLOOD COUNT 3.34 X10'6 (4.70-6.10); RED CELL DISTRIBUTION WIDTH 13.4 % (11.5-14.5); WHITE BLOOD COUNT 11.1 X10'3 (4.5-11.0)
[2018-07-07 06:02] LABS: ALBUMIN 3.1 G/DL (3.4-5.0); ANION GAP 9 (8-16); BLOOD UREA NITROGEN 27 MG/DL (7-18); CALCIUM 8.1 MG/DL (8.5-10.1); CHLORIDE 104 MMOL/L (99-107); CREATININE 1.23 MG/DL (0.60-1.10); GLUCOSE 106 MG/DL (70-104); PHOSPHORUS 3.2 MG/DL (2.3-4.5); POTASSIUM 4.1 MMOL/L (3.5-5.1); SODIUM 140 MMOL/L (135-145); TOTAL CARBON DIOXIDE 26.9 MMOL/L (24-32); eGFR 62 ML/MIN
[2018-07-07] MEDS: pantoprazole 40mg Tablet.DR PO SCH (07:57)
[2018-07-07] MEDS: aspirin 325mg tablet, delayed-release (Ecotrin) PO SCH (07:57)
[2018-07-07] MEDS: metoprolol tartrate 12.5mg (1/2 tablet) PO SCH (07:57)
[2018-07-07] MEDS: atorvastatin 10mg tablet PO SCH (07:57)
[2018-07-07] MEDS: docusate sod 100mg capsule PO SCH ×2 (07:57→20:01)
[2018-07-07] MEDS: metoprolol tartrate 25mg tablet PO SCH (20:00)
[2018-07-07] MEDS: insulin glargine (Lantus) pen - multi-dose SQ SCH (21:00)
[2018-07-08] VITALS (10 sets, daily range): BP systolic 111–159; BP diastolic 6–92
[2018-07-08 05:59] LABS: BASOPHILS % (AUTO) 0.4 % (0-1); EOSINOPHILS # (AUTO) 0.6 X10'3 (0-0.9); HEMATOCRIT 31.7 % (42.0-52.0); HEMOGLOBIN 10.7 g/dl (14.0-17.9); LYMPHOCYTES # (AUTO) 1.7 X10'3 (1.1-4.8); LYMPHOCYTES % (AUTO) 18.2 % (21-51); MEAN CORPUSCULAR HEMOGLOBIN 31.8 PG (27.0-31.0); MEAN CORPUSCULAR HGB CONC 33.8 % (33.0-36.5); MONOCYTES # (AUTO) 0.8 X10'3 (0-0.9); MONOCYTES % (AUTO) 8.3 % (2-12); NEUTROPHILS # (AUTO) 6.4 X10'3 (1.8-7.7); NEUTROPHILS % (AUTO) 67.1 % (42-75); PLATELET COUNT 276 X10'3 (140-440); RED BLOOD COUNT 3.37 X10'6 (4.70-6.10); RED CELL DISTRIBUTION WIDTH 13.5 % (11.5-14.5); WHITE BLOOD COUNT 9.6 X10'3 (4.5-11.0)
[2018-07-08 06:30] LABS: ALBUMIN 2.9 G/DL (3.4-5.0); ANION GAP 8 (8-16); BLOOD UREA NITROGEN 22 MG/DL (7-18); CALCIUM 8.6 MG/DL (8.5-10.1); CHLORIDE 106 MMOL/L (99-107); GLUCOSE 104 MG/DL (70-104); MAGNESIUM 1.9 MG/DL (1.5-2.4); PHOSPHORUS 4.9 MG/DL (2.3-4.5); POTASSIUM 4.1 MMOL/L (3.5-5.1); SODIUM 141 MMOL/L (135-145); TOTAL CARBON DIOXIDE 27.2 MMOL/L (24-32); eGFR 78 ML/MIN
[2018-07-08] MEDS ORDERED: ASPI-41 PO (07:28)
[2018-07-08] MEDS ORDERED: HYDR-3972 PO (07:28)
[2018-07-08] MEDS ORDERED: ATOR10TA PO (07:28)
[2018-07-08] MEDS ORDERED: COL100C PO (07:28)
[2018-07-08] MEDS ORDERED: METO25TA6 PO (07:28)
[2018-07-08] MEDS: aspirin 325mg tablet, delayed-release (Ecotrin) PO SCH (07:51)
[2018-07-08] MEDS: docusate sod 100mg capsule PO SCH (07:51)
[2018-07-08] MEDS: pantoprazole 40mg Tablet.DR PO SCH (07:52)
[2018-07-08] MEDS: metoprolol tartrate 25mg tablet PO SCH (07:52)
[2018-07-08] MEDS: atorvastatin 10mg tablet PO SCH (07:52)
[2018-07-08] MEDS ORDERED: fenofibrate 145mg tablet PO SCH (08:30)
[2018-07-08] MEDS: HYDROcodone/acetaminophen 10/325mg tab PO PRN (09:20)
== END 2018-07-08 11:00 | disposition home or self-care (01) | DRG 233 ==
LOC: ER 23:00 → ED HOLD 06-30 00:02 → PCU 3S 06-30 01:15 → ICU 2S 07-04 09:19
PROVIDERS: ADMIT Hospitalist; ATTEND Thoracic Surgery (Cardiothoracic Vascular Surgery)
PROC: B32T1ZZ Computerized Tomography (CT Scan) of Left Pulmonary Artery using Low Osmolar Contrast (ICD-10-PCS; 2018-06-29)
PROC: B3201ZZ Computerized Tomography (CT Scan) of Thoracic Aorta using Low Osmolar Contrast (ICD-10-PCS; 2018-06-29)
PROC: B32S1ZZ Computerized Tomography (CT Scan) of Right Pulmonary Artery using Low Osmolar Contrast (ICD-10-PCS; 2018-06-29)
PROC: 4A023N7 Measurement of Cardiac Sampling and Pressure, Left Heart, Percutaneous Approach (ICD-10-PCS; 2018-07-01)
PROC: B2151ZZ Fluoroscopy of Left Heart using Low Osmolar Contrast (ICD-10-PCS; 2018-07-01)
PROC: B2111ZZ Fluoroscopy of Multiple Coronary Arteries using Low Osmolar Contrast (ICD-10-PCS; 2018-07-01)
PROC: 021209W Bypass Coronary Artery, Three Arteries from Aorta with Autologous Venous Tissue, Open Approach (ICD-10-PCS; 2018-07-04)
PROC: 06BP4ZZ Excision of Right Saphenous Vein, Percutaneous Endoscopic Approach (ICD-10-PCS; 2018-07-04)
PROC: 5A1221Z Performance of Cardiac Output, Continuous (ICD-10-PCS; 2018-07-04)
PROC: B24BZZ4 Ultrasonography of Heart with Aorta, Transesophageal (ICD-10-PCS; 2018-07-04)
PROC: 02HV33Z Insertion of Infusion Device into Superior Vena Cava, Percutaneous Approach (ICD-10-PCS; 2018-07-04)
PROC: B548ZZA Ultrasonography of Superior Vena Cava, Guidance (ICD-10-PCS; 2018-07-04)
PROC: 4A133B3 Monitoring of Arterial Pressure, Pulmonary, Percutaneous Approach (ICD-10-PCS; 2018-07-04)
PROC: 02HQ32Z Insertion of Monitoring Device into Right Pulmonary Artery, Percutaneous Approach (ICD-10-PCS; 2018-07-04)
PROC: 02100Z9 Bypass Coronary Artery, One Artery from Left Internal Mammary, Open Approach (ICD-10-PCS; principal; 2018-07-04 06:40)
DX: I21.4 Non-ST elevation (NSTEMI) myocardial infarction (principal); N17.0 Acute kidney failure with tubular necrosis; I50.31 Acute diastolic (congestive) heart failure; Z68.42 Body mass index [BMI] 45.0-49.9, adult; I11.0 Hypertensive heart disease with heart failure; I25.110 Atherosclerotic heart disease of native coronary artery with unstable angina pectoris; E66.01 Morbid (severe) obesity due to excess calories; E78.00 Pure hypercholesterolemia, unspecified; E78.5 Hyperlipidemia, unspecified; E78.1 Pure hyperglyceridemia; K21.9 Gastro-esophageal reflux disease without esophagitis; G47.33 Obstructive sleep apnea (adult) (pediatric); Z80.1 Family history of malignant neoplasm of trachea, bronchus and lung; Z83.2 Family history of diseases of the blood and blood-forming organs and certain disorders involving the immune mechanism
CPT/HCPCS: 0232T; 93306; 93312; 93325; 93458; 99285; Z7506; Z7508; 36415; 36600; 71045; 71046; 71275; 80048; 80053; 80061; 82330; 82435; 82803; 82947; 82948; 83036; 83735; 84100; 84132; 84295; 84484; 85018; 85025; 85347; 85384; 85610; 85730; 86885; 86900; 86901; 86920; 87070; 93005; 93880; 93971; 94002; 94060; 94667; 94668; 94760; 97110; 97116; 97161; 97530; 99152; A4620; A6255; A6257; A6258; A6402; A6446; A6449; A7000; A7048; C1751; C1769; C9113; G0378; J0330; J0690; J1644; J1815; J1940; J2001; J2060; J2150; J2250; J2270; J2370; J2440; J2704; J2720; J2930; J3010; J3370; J3475; J3480; J3490; J7030; J7120; P9045; P9047; Q9967